=== PATIENT | male | born 1980 | race Two or more races ===

== ENCOUNTER 2021-01-28 10:51 | Emergency (ER) | payer BC ==
[~2021-01-28] VITALS: Ht 180.3 cm; Wt 99.8 kg
[2021-01-28] MEDS ORDERED: INTESTINEX680 M1 PO (18:45)
[2021-01-28] MEDS ORDERED: LEVSIN/SL0.125 MG PO (18:45)
[2021-01-28] MEDS ORDERED: DIPHENOXYLATE-1 EACH PO (18:45)
[2021-01-28] MEDS ORDERED: PEPCID AC20 MG PO (18:45)
[2021-01-28] MEDS ORDERED: FLAGYL500MG PO (18:45)
[2021-01-28] MEDS ORDERED: CIPRO500 MG PO (18:45)
== END 2021-01-28 19:55 | disposition home or self-care (01) ==
LOC: ER 10:51
DX: A04.8 Other specified bacterial intestinal infections (principal); R10.84 Generalized abdominal pain; R19.7 Diarrhea, unspecified; Z11.52 Encounter for screening for COVID-19